=== PATIENT | female | born 1985 | race Caucasian/White ===

== ENCOUNTER 2019-11-16 18:10 | Inpatient (IN) | payer OTHER ==
[~2019-11-16] VITALS: Ht 152.4 cm; Wt 85.3 kg
[~2019-11-16 18:10] MED LIST: IBUP-2070 PO; PREN-66 PO
[2019-11-16 18:35] VITALS: BP 124/81
[2019-11-16] MEDS ORDERED: METF-960 PO (18:37)
[2019-11-16] MEDS ORDERED: PNV1TABL54 PO (18:37)
[2019-11-16] MEDS ORDERED: RINGERS SOLUTION,LACTATED 1,000 ML IV PRN (23:01)
[2019-11-16] MEDS ORDERED: OXYTOCIN 30 UNITS/LACT RINGERS 500 ML IV ONE (23:01)
[2019-11-16] MEDS ORDERED: FentaNYL CITRATE-PF 100 MCG/2 ML VIAL IVP PRN (23:15)
[2019-11-16] MEDS ORDERED: METOCLOPRAMIDE HCL 5 MG/ML 2 ML VIAL IVP PRN (23:15)
[2019-11-16] MEDS ORDERED: CITRIC ACID/SODIUM CITRATE 30 ML SOLUTION UDCUP PO PRN (23:15)
[2019-11-16 23:26] LABS: BASOPHILS % (AUTO) 0.4 % (0.0-2.0); EOSINOPHILS % (AUTO) 0.2 % (1.0-6.0); HEMATOCRIT 32.5 % (36-46); LYMPHOCYTES # (AUTO) 2.6 K/uL (1.0-4.8); LYMPHOCYTES % (AUTO) 24.8 % (22.0-44.0); MEAN CORPUSCULAR HEMOGLOBIN 30.7 pg (26.0-34.0); MEAN CORPUSCULAR HGB CONC 33.9 G/dL (31.0-37.0); MEAN CORPUSCULAR VOLUME 91 fL (80-100); MONOCYTES # (AUTO) 0.6 K/uL (0.1-1.0); MONOCYTES % (AUTO) 5.7 % (2.0-9.0); NEUTROPHILS # (AUTO) 7.1 K/uL (1.8-7.7); NEUTROPHILS % (AUTO) 68.9 % (40.0-70.0); PLATELET COUNT (AUTO)-OB 197 K/uL (150-450); RED BLOOD CELL COUNT(AUTO) 3.59 MIL/uL (4.00-5.20)
[2019-11-16] MEDS ORDERED: AMPICILLIN SODIUM 2 GM/NS 100 ML IV ONE (23:30)
[2019-11-16] MEDS: RINGERS SOLUTION,LACTATED 1,000 ML IV SCH (23:41)
[2019-11-17] MEDS ORDERED: Metformin PO (03:30)
[2019-11-17 03:51] LABS: GLUCOMETER DEV NAME(LOC) 4S.; GLUCOSE,POINT OF CARE 75 MG/DL (70-110)
[2019-11-17] MEDS: AMPICILLIN SODIUM 1 GM/NS 50 ML IV SCH ×2 (05:11→09:03)
[2019-11-17] MEDS: RINGERS SOLUTION,LACTATED 1,000 ML IV SCH (06:44)
[2019-11-17] MEDS ORDERED: OXYGEN THERAPY IH SCH (08:00)
[2019-11-17] MEDS ORDERED: OXYTOCIN 30 UNITS/LACT RINGERS 500 ML IV PRN (08:19)
[2019-11-17] MEDS ORDERED: ROPIVACAINE HCL/PF 0.2% 100 ML ED ONE (08:43)
[2019-11-17] MEDS ORDERED: BUPIVACAINE HCL/PF 0.25% 10 ML VIAL ONE (08:43)
[2019-11-17] MEDS ORDERED: DiphenhydrAMINE HCL 50 MG/ML VIAL IVP PRN (09:15)
[2019-11-17] MEDS ORDERED: NALBUPHINE HCL 10 MG/ML VIAL IVP PRN (09:15)
[2019-11-17] MEDS ORDERED: ROPIVACAINE HCL/PF 0.2% 100 ML ED PRN (09:15)
[2019-11-17] MEDS ORDERED: ONDANSETRON HCL 4 MG/2 ML VIAL IVP PRN (09:15)
[2019-11-17] MEDS ORDERED: MISOPROSTOL 100 MCG TABLET PO ONE ×2 (12:45→12:46)
[2019-11-17] MEDS ORDERED: MISOPROSTOL 100 MCG TABLET PR ONE (12:45)
[2019-11-17] MEDS ORDERED: METF-961 PO (12:48)
[2019-11-17] MEDS ORDERED: OXYTOCIN 30 UNITS/LACT RINGERS 500 ML IV ONE (13:25)
[2019-11-17] MEDS ORDERED: GLYCERIN/WITCH HAZEL LEAF 40 PADS JAR TP PRN (13:30)
[2019-11-17] MEDS ORDERED: BENZOCAINE 20%/MENTHOL 56 GM SPRAY CANISTER TP PRN (13:30)
[2019-11-17] MEDS ORDERED: OxyCODONE HCL/ACETAMINOPHEN 5-325 MG TABLET PO PRN ×2 (13:30)
[2019-11-17] MEDS ORDERED: LANOLIN 7 GM OINTMENT TP PRN (13:30)
[2019-11-17] MEDS: IBUPROFEN 800 MG TABLET PO PRN (13:47)
[2019-11-17] MEDS: MAGNESIUM HYDROXIDE SUSPENSION 30 ML UDCUP PO PRN (21:11)
[2019-11-18 06:53] LABS: BASOPHILS % (AUTO) 0.2 % (0.0-2.0); EOSINOPHILS % (AUTO) 0.7 % (1.0-6.0); HEMATOCRIT 33.3 % (36-46); HEMOGLOBIN 11.1 g/dL (12.0-16.0); LYMPHOCYTES # (AUTO) 3.2 K/uL (1.0-4.8); LYMPHOCYTES % (AUTO) 30.1 % (22.0-44.0); MEAN CORPUSCULAR HEMOGLOBIN 30.5 pg (26.0-34.0); MEAN CORPUSCULAR HGB CONC 33.4 G/dL (31.0-37.0); MEAN CORPUSCULAR VOLUME 91 fL (80-100); MONOCYTES # (AUTO) 0.7 K/uL (0.1-1.0); MONOCYTES % (AUTO) 6.1 % (2.0-9.0); NEUTROPHILS # (AUTO) 6.7 K/uL (1.8-7.7); NEUTROPHILS % (AUTO) 62.9 % (40.0-70.0); PLATELET COUNT (AUTO)-OB 189 K/uL (150-450); RED BLOOD CELL COUNT(AUTO) 3.65 MIL/uL (4.00-5.20); RED CELL DISTRIBUTION WIDTH 14.1 % (11.5-14.5)
[2019-11-18] MEDS: MAGNESIUM HYDROXIDE SUSPENSION 30 ML UDCUP PO PRN (08:32)
[2019-11-18] MEDS ORDERED: IBUP-2071 PO (08:45)
[2019-11-18] MEDS ORDERED: DOCU-275 PO (08:46)
[2019-11-18] MEDS: IBUPROFEN 800 MG TABLET PO PRN (13:00)
== END 2019-11-18 13:15 | disposition home or self-care (01) | DRG 807 ==
LOC: 4S 18:10 → OBSVTOIN 18:10
PROVIDERS: ADMIT Obstetrics & Gynecology; ATTEND Obstetrics & Gynecology
PROC: 10E0XZZ Delivery of Products of Conception, External Approach (ICD-10-PCS; principal; 2019-11-17)
PROC: 00HU33Z Insertion of Infusion Device into Spinal Canal, Percutaneous Approach (ICD-10-PCS; 2019-11-17)
PROC: 3E0R3BZ Introduction of Anesthetic Agent into Spinal Canal, Percutaneous Approach (ICD-10-PCS; 2019-11-17)
PROC: 0HQ9XZZ Repair Perineum Skin, External Approach (ICD-10-PCS; 2019-11-17)
DX: O24.429 Gestational diabetes mellitus in childbirth, unspecified control (principal); Z37.0 Single live birth; O70.0 First degree perineal laceration during delivery; Z3A.39 39 weeks gestation of pregnancy; Z20.828 Contact with and (suspected) exposure to other viral communicable diseases
CPT/HCPCS: 86850; 86900; 86901; 96360; 96361; 96365; 96366; J0290; J2590; J2795; J3490; J7120